=== PATIENT | female | born 1990 | race Two or more races ===

== ENCOUNTER 2023-01-06 16:17 | Emergency (ER) | payer MEDICAID, OTHER ==
[~2023-01-06] VITALS: Ht 175.3 cm; Wt 98.0 kg
[2023-01-06 16:24] VITALS: BP 134/75; PULSE 123; RESP 18; O2SAT 99
== END 2023-01-06 19:35 | disposition left against medical advice (07) ==
LOC: ER 16:17
DX: S00.81XA Abrasion of other part of head, initial encounter (principal); S80.811A Abrasion, right lower leg, initial encounter; H92.02 Otalgia, left ear; M25.521 Pain in right elbow; Z53.21 Procedure and treatment not carried out due to patient leaving prior to being seen by health care provider; W55.12XA Struck by horse, initial encounter; Y93.89 Activity, other specified; Y92.89 Other specified places as the place of occurrence of the external cause; Y99.8 Other external cause status